=== PATIENT | female | born 2005 | race Caucasian/White ===

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

== ENCOUNTER 2023-04-09 21:23 | Emergency (ER) | payer OTHER ==
[2023-04-09 21:30] VITALS: BP 131/80; PULSE 88; RESP 17; TEMP 98.5; BMI 24.7
== END 2023-04-09 23:06 | disposition home or self-care (01) ==
LOC: FER 21:23
DX: R42 Dizziness and giddiness (principal)
CPT/HCPCS: 99282-25